=== PATIENT | female | born 1960 | race Caucasian/White ===

== ENCOUNTER 2017-02-23 12:16 | Emergency (ER) | payer OTHER ==
[2017-02-23] MEDS ORDERED: Adacel Vial IM ONE ×2 (12:44→12:47)
[2017-02-23] MEDS ORDERED: Hydromorphone 1 mg/ml Ampule IM ONE (12:44)
[2017-02-23] MEDS ORDERED: Hydromorphone 1 mg/ml Ampule ONE (12:47)
--- NOTE | 2017-02-23 12:48 | ERPHSYRPT ---
- History of Present Illness Time Seen by Provider: 02/23/17 12:30 Source: patient, family () Patient Subjective Stated Complaint: PUTTING AWNING UP ON A BOAT AND METAL BAR CAME DOWN PINNING PATIENT'S LEFT HAND BETWEEN TWO METAL BARS. PAIN TO LEFT 5TH DIGIT Triage Nursing Assessment: LEFT HAND FIFTH DIGIT OBVIOUS DEFORMITY. SMALL ABRASION TO FINGER NOTED. PATIENT HAD APPLIED ICE, HAND RED. Physician History: CC: left hand pain Hx: 56 y/o patient of Dr Dustin Ragsdale. She twisted and smashed left hand in boat this AM at [facility]. Unsure last tetanus vaccine. Severe pain. Took two norco at noon [employer]. No other injuries. No N/T/W. Occurred: just prior to arrival Allergies/Adverse Reactions: aspartame Allergy (Verified 02/23/17 12:26) Penicillins Allergy (Verified 02/23/17 12:26) Home Medications: Calcium Carb/D3/Magnesium/Zinc [Amaury Mag Zinc + D Tablet] 1 each PO DAILY [History] Hydrochlorothiazide 25 mg [hydroDIURIL 25 MG] 25 mg PO DAILY 02/23/17 [ History] Levothyroxine Sodium 112 Mcg [Synthroid 112 Mcg] 112 mcg PO DAILY 02/23/17 [History] Losartan Potassium [Cozaar] 25 mg PO DAILY 02/23/17 [History] Smz/Tmp Ds Tablet [Bactrim Ds Tablet] 1 udtab PO DAILY 02/23/17 [History] Hx Tetanus, Diphtheria Vaccination/Date Given: No Hx Influenza Vaccination/Date Given: Yes Hx Pneumococcal Vaccination/Date Given: No - Review of Systems Constitutional: No Symptoms Musculoskeletal: Joint Pain (left hand), No Back Pain, No Neck Pain Neurological: No Focal Weakness, No Parasthesia - Past Medical History Pertinent Past Medical History: Yes Neurological History: Migraines Cardiac History: Hypertension Endocrine Medical History: Hypothyroidism Musculoskeletal History: Fibromyalgia GI Medical History: Cirrhosis, Gallbladder Disease Female Reproductive Disorders: Endometriosis Other Medical History: [place] - Past Surgical History Past Surgical History: Yes Gastrointestinal: Cholecystectomy Female Surgical History: Hysterectomy Other Surgical History: SIGMOID COLON REMOVED, THYROIDECTOMY, APPENDIX, - Social History Smoking Status: Current every day smoker How long have you smoked: 35 Exposure to second hand smoke: No Drug Use: none Patient Lives Alone: No - Nursing Vital Signs Nursing Vital Signs: Initial Vital Signs Temperature 98.1 F Temperature Source Oral Pulse Rate 98 Respiratory Rate 18 Blood Pressure [] 133/71 Pain Intensity 4 - Physical Exam General Appearance: alert, other (uncomfortable appearing) Eyes, Ears, Nose, Throat Exam: moist mucous membranes Neck Exam: supple Cardiovascular/Respiratory Exam: regular rate/rhythm Neuro/Tendon Exam: normal sensation, normal motor functions Mental Status Exam: alert, oriented x 3, cooperative Skin Exam: warm, dry SpO2 Interpretation: normal SpO2: 97 Oxygen Delivery: Room Air Comments: left hand tender at 5th and 4th fingers, MC. There is an abrasion. The 5th finger appears misaligned. Good cap refill. Procedures - Splinting Location of Splint: Left (ulnar gutter orthoglass) Splint Applied By: ED Physician Pre-Proc Neuro Vasc Exam: normal Post-Proc Neuro Vasc Exam: neurovascular intact, unchanged from pre-exam - Additional Procedures Progress: FRACTURE REDUCTION: Left 5ht proximal phalynx fracture reduced using traction after IM dilaudid and digital block. Realigned well on xray. Ulnar gutter splint applied. - Course Nursing assessment & vital signs reviewed: Yes - Radiology Exams left hand X-ray Interpretation: Interpreted by me (angulated proximal 5th phalynx fracture ) left hand post reduction X-ray Interpretation: Interpreted by me (5th phalynx realigned) Ordered Tests: Active Orders 24 hr Category Date Time Status Cold Application STAT Care 02/23/17 12:44 Active Wound Care STAT Care 02/23/17 12:44 Active HAND (2 VIEW) Stat Exams 02/23/17 14:24 Taken HAND (MINIMUM 3 VIEWS) Stat Exams 02/23/17 12:44 Taken Medication Summary Discontinued Medications Generic Name Dose Route Start Last Admin Trade Name Freq PRN Reason Stop Dose Admin Bupivacaine HCl 5 ml 02/23/17 13:18 02/23/17 13:20 Marcaine 0.5% Sdv 10 Ml IJ 02/23/17 13:19 5 ml STAT ONE Administration Bupivacaine HCl Confirm 02/23/17 13:19 Marcaine 0.5% Sdv 10 Ml Administered 02/23/17 13:20 Dose 10 ml .ROUTE .STK-MED ONE Diphtheria/Tetanus/Acell Pertussis 0.5 ml 02/23/17 12:44 02/23/17 12:48 Adacel Vial IM 02/23/17 12:45 0.5 ml .ONCE ONE Administration Diphtheria/Tetanus/Acell Pertussis Confirm 02/23/17 12:47 Adacel Vial Administered 02/23/17 12:48 Dose 0.5 ml IM .STK-MED ONE Hydromorphone HCl 1 mg 02/23/17 12:44 02/23/17 12:49 Hydromorphone 1 Mg/Ml Ampule IM 02/23/17 12:45 1 mg STAT ONE Administration Hydromorphone HCl Confirm 02/23/17 12:47 Hydromorphone 1 Mg/Ml Ampule Administered 02/23/17 12:48 Dose 1 mg .ROUTE .STK-MED ONE Lidocaine HCl 5 ml 02/23/17 13:18 02/23/17 13:20 Xylocaine 1% Hcl 20 Ml Mdv IJ 02/23/17 13:19 5 ml STAT ONE Administration Lidocaine HCl Confirm 02/23/17 13:19 Xylocaine 1% Hcl 20 Ml Mdv Administered 02/23/17 13:20 Dose 5 ml .ROUTE .STK-MED ONE - Progress Progress Note: 02/23/17 13:27 IM dilaudid given. She took two norco [employer]. o.5% plain bupivicaine and 1% plain lidoaine 4ml used for 5th left finger digital block using palmar approach. 02/23/17 14:42 Pt wants to follow up at [facility]. Spoke to Dr Tommie santos and he advised wednesday when hand available. Appt 8:30 AM with ortho clinic in [facility] ER Cast Room. - Departure Time of Disposition: 14:44 Departure Disposition: Home Clinical Impression: Closed fracture of phalanx of left little finger Qualifiers: Encounter type: initial encounter Phalanx: proximal Fracture alignment: displaced Qualified Code(s): S62.617A - Displaced fracture of proximal phalanx of left little finger, initial encounter for closed fracture Condition: Stable Critical Care Time: No Referrals: DUSTIN RAGSDALE MD [Primary Care Provider] - Instructions: Finger Fracture Additional Instructions: Ice, rest, elevate. Splint. Go to [facility] ER to see orthopedics clinic at 8:30AM Wednesday. Rx norco. No driving. Prescriptions: Hydrocodone Bit/Acetaminophen [[place] 5-325 Tablet] 1 each PO Q6H PRN PRN #20 tablet PRN Reason: Pain
[2017-02-23] MEDS ORDERED: XYLOCAINE 1% HCL 20 ML MDV IJ ONE (13:18)
[2017-02-23] MEDS ORDERED: Marcaine 0.5% SDV 10 ML IJ ONE (13:18)
[2017-02-23] MEDS ORDERED: Marcaine 0.5% SDV 10 ML ONE (13:19)
[2017-02-23] MEDS ORDERED: XYLOCAINE 1% HCL 20 ML MDV ONE (13:19)
[2017-02-23 14:54] VITALS: BP 103/67; PULSE 67; O2SAT 95
--- NOTE | 2017-02-23 20:22 | XRAY ---
Indication: Pain following crush injury. Comparison: None 3 views of the left hand demonstrates complete transverse fracture involving the fifth proximal phalanx shaft with moderate angulation and soft tissue swelling. No other bony, reticular, or soft tissue abnormalities.
--- NOTE | 2017-02-23 20:24 | XRAY ---
Indication: Post reduction. Comparison: Taken earlier in the day. 2 views of the left hand demonstrates fifth proximal phalanx fracture improved in apposition/alignment now near-anatomic with overlying splint material.
== END 2017-02-23 14:54 | disposition home or self-care (01) ==
LOC: ED 12:16
PROC: 2W3FX1Z Immobilization of Left Hand using Splint (ICD-10-PCS; principal; 2017-02-23)
DX: S62.617A Displaced fracture of proximal phalanx of left little finger, initial encounter for closed fracture (principal); X50.0XXA Overexertion from strenuous movement or load, initial encounter
CPT/HCPCS: 29126; 73120; 73130; 90471; 90715; 96372; 96374; 99284; J1170